=== PATIENT | female | born 1975 | race Caucasian/White ===

== ENCOUNTER 2018-11-04 18:15 | Inpatient (IN) | payer BC ==
[~2018-11-04] VITALS: Ht 160 cm; Wt 70.9 kg
[2018-11-04] MEDS ORDERED: acetaminophen 325mg tablet PO ONE (19:00)
[2018-11-04] MEDS ORDERED: normal saline 1000ML IV soln IVB ONE ×2 (21:35→22:45)
[2018-11-04] MEDS ORDERED: ondansetron/PF 4mg/2ml inj IV ONE (21:35)
[2018-11-04] MEDS ORDERED: ketorolac tromethamine 15mg/ml inj. IV ONE (21:35)
[2018-11-04 22:15] LABS: BASOPHILS % (AUTO) 0.4 % (0-1); EOSINOPHILS % (AUTO) 0.1 % (0-6); HEMATOCRIT 34.6 % (35.0-45.0); LYMPHOCYTES # (AUTO) 1.3 X10'3 (1.1-4.8); LYMPHOCYTES % (AUTO) 9.7 % (21-51); MEAN CORPUSCULAR HEMOGLOBIN 31.6 PG (27.0-31.0); MEAN CORPUSCULAR HGB CONC 34.7 g/dL (33.0-36.5); MEAN CORPUSCULAR VOLUME 91.2 FL (78-98); MEAN PLATELET VOLUME 9.6 FL (7.4-10.4); MONOCYTES # (AUTO) 1.1 X10'3 (0-0.9); MONOCYTES % (AUTO) 8.6 % (2-12); NEUTROPHILS # (AUTO) 10.5 X10'3 (1.8-7.7); NEUTROPHILS % (AUTO) 81.2 % (42-75); PLATELET COUNT 206 X10'3 (140-440); RED BLOOD COUNT 3.79 X10'6 (4.20-5.60); RED CELL DISTRIBUTION WIDTH 13.2 % (11.5-14.5); WHITE BLOOD COUNT 12.9 X10'3 (4.5-11.0)
[2018-11-04 22:20] LABS: ALANINE AMINOTRANSFERASE 21 U/L (12-78); ALBUMIN 3.6 G/DL (3.4-5.0); ALKALINE PHOSPHATASE 90 IU/L (46-116); ANION GAP 10 (8-16); ASPARTATE AMINO TRANSFERASE 9 U/L (10-37); BILIRUBIN,TOTAL 0.6 MG/DL (0.1-1.0); BLOOD UREA NITROGEN 7 MG/DL (7-18); BUN/CREATININE RATIO 8.3 (6.6-38.0); CALCIUM 9.1 MG/DL (8.5-10.1); CHLORIDE 107 MMOL/L (99-107); CREATININE 0.84 MG/DL (0.40-0.90); GLUCOSE 101 MG/DL (70-104); POTASSIUM 3.7 MMOL/L (3.5-5.1); SODIUM 140 MMOL/L (135-145); TOTAL CARBON DIOXIDE 23.5 MMOL/L (24-32); TOTAL PROTEIN 7.2 G/DL (6.4-8.2); eGFR 74 ML/MIN
[2018-11-04] MEDS ORDERED: CefTRIAXone 2gm/D5W 50ml 50 ML IV ONE (22:25)
[2018-11-04] MEDS ORDERED: NO HOME MEDS (23:51)
[2018-11-05] VITALS (17 sets, daily range): BP systolic 90–111; BP diastolic 52–77
[2018-11-05] MEDS ORDERED: ondansetron/PF 4mg/2ml inj IV PRN ×3 (00:30→19:25)
[2018-11-05] MEDS ORDERED: magnesium hydroxide 30ml (MOM) UD suspension PO PRN (00:30)
[2018-11-05] MEDS ORDERED: mag hydrox/Alum hydrox/simeth 30ml oral suspension PO PRN (00:30)
[2018-11-05] MEDS ORDERED: acetaminophen 325mg tablet PO PRN (00:30)
[2018-11-05] MEDS: normal saline 1000ml 1,000 ML IV SCH ×3 (01:20→20:26)
--- NOTE | 2018-11-05 01:41 | NUR ---
Pt belongings: jacket, shirt, sports bra, shirt, undies, sandals, wallet (no otero).
--- NOTE | 2018-11-05 03:00 | NUR ---
PATIENT ARRIVED ON UNIT VIA GURNEY. AMBULATED TO BED. AT BEDSIDE. FLUIDS RUNNING. BELONGINGS AT BEDSIDE.
--- NOTE | 2018-11-05 06:47 | NUR ---
PATIENT REPORT GIVEN TO CHRISTIANO JOHN.
[2018-11-05] MEDS ORDERED: sincalide inj 1.4 MCG in normal saline 50ml IV soln 50 ML IV ONE (08:00)
[2018-11-05] MEDS ORDERED: CefTRIAXone/D5W-Rocephin 1gm 50 ML IV SCH (08:00)
[2018-11-05] MEDS ORDERED: magnesium Cl slow-release 64mg tablet PO PRN (08:40)
[2018-11-05] MEDS ORDERED: magnesium 4gm in 100ml NS 100 ML IV PRN (08:40)
[2018-11-05] MEDS ORDERED: potassium Cl 20 mEq SR tablet PO PRN ×2 (08:40)
[2018-11-05] MEDS ORDERED: potassium Cl 40MEQ/NS 500ml 500 ML IV PRN ×2 (08:40)
[2018-11-05] MEDS: metroNIDAZOLE-Flagyl 500mg/NS 100 ML IV SCH ×2 (09:33→16:00)
[2018-11-05] MEDS: levoFLOXACIN-Levaquin 750MG/D5 150 ML IV SCH (11:03)
[2018-11-05] MEDS ORDERED: BUPIVAcaine/PF 2.5 mg/ml (0.25%) 30ml vial ONE (14:56)
[2018-11-05] MEDS ORDERED: ceFAZolin 1000mg inj ONE ×2 (14:56→18:49)
[2018-11-05] MEDS ORDERED: midazolam 2 mg/2 ml injection ONE (17:38)
[2018-11-05] MEDS ORDERED: fentaNYL/PF 50MCG/1 ML 2ML syringe ONE (17:38)
--- NOTE | 2018-11-05 17:43 | NUR ---
patient went to surgery unable to give Flagyl due to patient at hida scan. Patient then left to surgery.
[2018-11-05] MEDS ORDERED: sevoflurane 250ml liquid IH ONE (18:01)
[2018-11-05] MEDS ORDERED: glycopyrrolate 0.2mg/ml inj ONE (18:03)
[2018-11-05] MEDS ORDERED: neostigmine methylsulfate 1 MG/ML 10ml vial ONE (18:03)
[2018-11-05] MEDS ORDERED: dexamethasone sod phosphate 4mg/ml inj. ONE (18:03)
[2018-11-05] MEDS ORDERED: LIDOcaine 2% (20mg/ml) 5ml vial ONE (18:03)
[2018-11-05] MEDS ORDERED: propofol inj 20 ML IV ONE (18:03)
[2018-11-05] MEDS ORDERED: rocuronium 10mg/ml inj IV ONE (18:03)
[2018-11-05] MEDS ORDERED: ondansetron/PF 4mg/2ml inj ONE (18:03)
[2018-11-05] MEDS ORDERED: ringers solution, lacted 1,000 ML IV SCH (18:04)
[2018-11-05] MEDS ORDERED: morphine 4 MG/ML inj SYRINge IV PRN ×2 (18:05)
[2018-11-05] MEDS ORDERED: proCHLORperazine 10 MG/2 ml inj IV PRN (18:05)
[2018-11-05] MEDS ORDERED: meperidine/PF 25mg/ml syringe IV PRN ×3 (18:05)
[2018-11-05] MEDS ORDERED: meperidine/PF 50mg/ml syringe ONE (19:09)
--- NOTE | 2018-11-05 19:20 | NUR ---
Received from OR via , accompanied by Anesthesiologist DR GRIFFIN and report given by Anesthesiolgist. PATIENT A&OX4, DENIES PAIN, V/S WNL, NEUROVASCULAR CHECKS INTACT, 20G PIV LUE X2 , SCD ON, 2 BANDAIDS TO LAP SIGHTS AND DRESSING WITH JOSELIN OF ABDOMEN CDI.
[2018-11-05] MEDS ORDERED: HYDROcodone/acetaminophen 10/325mg tab PO PRN (19:25)
--- NOTE | 2018-11-05 20:10 | NUR ---
PATIENT A&OX4, DENIES PAIN, V/S WNL, NEUROVASCULAR CHECKS INTACT, 20G PIV LUE X2 , SCD ON, 2 BANDAIDS TO LAP SIGHTS AND DRESSING WITH JOSELIN OF ABDOMEN CDI.. TAKEN TO 356A WITH ALL BELONGINGS AND HOOKED UP TO MONITORS IN ROOM AND REPORT GIVEN TO DESTINEE RN WHO HAS TAKEN OVER PATIENT CARE.
--- NOTE | 2018-11-05 20:10 | NUR ---
Patient in room [facility]. I have received report from recovery roomDarshan and had the opportunity to ask questions and assume patient care.
[2018-11-05] MEDS: ketorolac trometh. 30mg/ml inj. IV SCH (20:31)
[2018-11-06] VITALS: BP_SYST 98; BP_SYST 99; BP_DIAS 60; BP_DIAS 61
[2018-11-06] MEDS: metroNIDAZOLE-Flagyl 500mg/NS 100 ML IV SCH ×3 (00:39→16:56)
[2018-11-06] MEDS: ketorolac trometh. 30mg/ml inj. IV SCH ×3 (02:10→15:07)
[2018-11-06] MEDS: normal saline 1000ml 1,000 ML IV SCH (02:14)
[2018-11-06 04:30] VITALS: BP 90/49
[2018-11-06 05:18] LABS: BASOPHILS % (AUTO) 0.1 % (0-1); EOSINOPHILS % (AUTO) 0 % (0-6); HEMATOCRIT 30.8 % (35.0-45.0); HEMOGLOBIN 10.4 g/dl (12.0-16.0); LYMPHOCYTES # (AUTO) 0.5 X10'3 (1.1-4.8); LYMPHOCYTES % (AUTO) 5.1 % (21-51); MEAN CORPUSCULAR HEMOGLOBIN 31.2 PG (27.0-31.0); MEAN CORPUSCULAR HGB CONC 33.8 g/dL (33.0-36.5); MEAN CORPUSCULAR VOLUME 92.3 FL (78-98); MEAN PLATELET VOLUME 9.4 FL (7.4-10.4); MONOCYTES # (AUTO) 0.4 X10'3 (0-0.9); MONOCYTES % (AUTO) 3.7 % (2-12); NEUTROPHILS # (AUTO) 8.8 X10'3 (1.8-7.7); NEUTROPHILS % (AUTO) 91.1 % (42-75); PLATELET COUNT 180 X10'3 (140-440); RED BLOOD COUNT 3.34 X10'6 (4.20-5.60); RED CELL DISTRIBUTION WIDTH 13.5 % (11.5-14.5); WHITE BLOOD COUNT 9.7 X10'3 (4.5-11.0)
[2018-11-06 05:35] LABS: ALANINE AMINOTRANSFERASE 41 U/L (12-78); ALBUMIN 2.6 G/DL (3.4-5.0); ALBUMIN/GLOBULIN RATIO 0.8 (1.1-1.5); ALKALINE PHOSPHATASE 74 IU/L (46-116); ANION GAP 10 (8-16); ASPARTATE AMINO TRANSFERASE 44 U/L (10-37); BILIRUBIN,TOTAL 0.3 MG/DL (0.1-1.0); BLOOD UREA NITROGEN 8 MG/DL (7-18); BUN/CREATININE RATIO 13.6 (6.6-38.0); CALCIUM 8.7 MG/DL (8.5-10.1); CHLORIDE 106 MMOL/L (99-107); CREATININE 0.59 MG/DL (0.40-0.90); GLUCOSE 117 MG/DL (70-104); MAGNESIUM 1.6 MG/DL (1.5-2.4); POTASSIUM 3.9 MMOL/L (3.5-5.1); SODIUM 138 MMOL/L (135-145); TOTAL CARBON DIOXIDE 21.7 MMOL/L (24-32); TOTAL PROTEIN 5.9 G/DL (6.4-8.2); eGFR > 90 ML/MIN
--- NOTE | 2018-11-06 06:20 | NUR ---
Patient in room [facility]. I have received report from ALVARO Perez and had the opportunity to ask questions and assume patient care.
--- NOTE | 2018-11-06 07:06 | NUR ---
Medication not taken care of by nuclear medicine. Assuming the patient received medication for her previous HIDA scan but it was not documented in the [facility].
[2018-11-06 07:14] VITALS: BP 93/56
[2018-11-06] MEDS: levoFLOXACIN-Levaquin 750MG/D5 150 ML IV SCH (08:54)
[2018-11-06 11:15] VITALS: BP 95/61
[2018-11-06] MEDS ORDERED: IBUP-1985 PO (17:08)
--- NOTE | 2018-11-06 18:30 | NUR ---
Problems reprioritized. Patient report given, questions answered & plan of care reviewed with ALVARO Marte.
--- NOTE | 2018-11-06 18:37 | NUR ---
Patient should be discharged in approx. 5-10 mins by Rosanna. Education was given and patient and verbalized understanding. Patient will follow up with Dr. Ocampo in one week. JOSELIN was removed prior to discharge. I removed her AC PIV, cath tip intact. Rosanna took out her wrist PIV. Patient will get Ibuprofen/Tyenol over the counter for pain. 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
== END 2018-11-06 18:45 | disposition home or self-care (01) | DRG 418 ==
LOC: ER 18:16 → ORTHO 4S 11-05 02:18 → CMPBEDREQ 11-05 02:26 → SUR 3N 11-05 20:20
PROVIDERS: ADMIT Internal Medicine; ATTEND Family Medicine
PROC: CF1C1ZZ Planar Nuclear Medicine Imaging of Hepatobiliary System, All using Technetium 99m (Tc-99m) (ICD-10-PCS; 2018-11-05)
PROC: 0FT44ZZ Resection of Gallbladder, Percutaneous Endoscopic Approach (ICD-10-PCS; principal; 2018-11-05 18:01)
DX: K81.0 Acute cholecystitis (principal); K82.1 Hydrops of gallbladder
CPT/HCPCS: 96361; 96365; 96375; 99285; Z7506; 36415; 78226; 80053; 83735; 84145; 85025; 87070; A6251; A7000; A9537; G0378; J0690; J0696; J1100; J1885; J1956; J2001; J2175; J2250; J2405; J2704; J2710; J2805; J3010; J3490; J7030; J7040; J7120